=== PATIENT | male | born 1980 | race Caucasian/White ===

== ENCOUNTER 2020-08-25 18:24 | Emergency (ER) | payer OTHER ==
[~2020-08-25] VITALS: Ht 182.9 cm; Wt 98.0 kg
[2020-08-25 18:29] VITALS: BP 125/82
--- NOTE | 2020-08-25 20:15 | NUR ---
PT TO ROOM, ASSUMED CARE.
[2020-08-25] MEDS ORDERED: LIDOcaine 1% W/epiNEPHrine 1:200,000 10ml vial IJ ONE (20:40)
[2020-08-25] MEDS ORDERED: TETanus/Pertussis (Acell)/Diphther VAC/PF (Tdap-Adult) 0.5ml syringe IMVAC ONE (20:40)
== END 2020-08-25 21:32 | disposition home or self-care (01) ==
LOC: ER 18:25
DX: S61.210A Laceration without foreign body of right index finger without damage to nail, initial encounter (principal); R25.1 Tremor, unspecified; W26.0XXA Contact with knife, initial encounter; Y93.89 Activity, other specified; Y92.89 Other specified places as the place of occurrence of the external cause; Y99.8 Other external cause status; Z87.820 Personal history of traumatic brain injury
CPT/HCPCS: 12001; 90471; 90715; 99283